=== PATIENT | male | born 1955 | race Caucasian/White ===

== ENCOUNTER 2023-08-19 10:27 | Emergency (ER) | payer MEDICARE, OTHER, SELFPAY ==
[2023-08-19 10:29] VITALS: BP 140/99
--- NOTE | 2023-08-19 11:44 | ED.GENMED ---
History of Present Illness
General
Chief Complaint: Fall
Time Seen by Provider: 08/19/23 11:15
Travel History
Have you had any contact with someone who has COVID-19?: No
Do you have any symptoms of coronavirus? Fever > 100 degrees, chills, cough, shortness of breath, sore throat, loss of taste or smell, muscle aches, or headache?: No
History of Present Illness
History of Present Illness:
68-year-old male presents emergency department for evaluation of left knee pain. He states his leg becomes stuck between 2 logs when he twisted and fell to the ground. Unable to bear weight on the leg. Pain and swelling to the superior L knee
Review of Systems
Review of Systems
Allergies reviewed?: Yes
All Other Systems: ROS reviewed and negative except as documented in HPI and ROS
Phy Exam
Physical Exam
Physical Exam:
GEN: Well appearing, NAD, WDWN
HEENT: Oral mucosa moist, no scleral icterus
Cardiac: Regular rate
Lung: No respiratory distress, no tachypnea
MSK: Marked swelling of the L anterior knee, low lying patella. Focal tenderness to the superior patella. Unable to perform SLR on the L
Skin: Good color, no pallor or jaundice, no rashes
Neuro: AO x3, moves all extremities freely
Psych: Calm, cooperative
Course
Orders/Labs/Results
Orders:
Orders
08/19/23 10:31
Knee, Left 4 or More Views [CR Knee - Left 4 Or More View*] Urgent
Comment:
Reason For Exam: pain
08/19/23 11:44
Crutches-Treatment ONCE
Knee Immobilizer Left-Treatmen ONCE
Vital Signs
Initial and Last Documented VS:
Initial Vital Signs
Temp Pulse Resp BP Pulse Ox
97.8 F 82 18 140/99 97
08/19/23 10:29 08/19/23 10:29 08/19/23 10:29 08/19/23 10:29 08/19/23 10:29
Last Documented Vital Signs
Temp Pulse Resp BP Pulse Ox
97.8 F 82 18 140/99 97
08/19/23 10:29 08/19/23 10:29 08/19/23 10:29 08/19/23 10:29 08/19/23 10:29
MDM/Problems Addressed
MDM/Problems Addressed:
High concern for quad tendon rupture given lack of ability to perform SLR. Knee immobilizer placed, advised PWB and ortho f/u
*Critical Care Note
Total Time (30-74mins, 75-104mins- exclusive of procedures): Not Applicable
ED Attending Note
-
Portions of this chart may have been created with voice recognition software.� Occasional wrong word or��sound alike� substitutions may have occurred due to the inherent limitations of voice recognition software.
Discharge Plan
Departure
Patient Disposition: Home (Routine Discharge)
Date of Disposition: 08/19/23
Time of Disposition: 11:44
Patient with high blood pressure during this ER visit?: No
Discharge Problem:
Rupture of left quadriceps tendon
Instructions: Quadriceps and Patellar Tendon Injuries
Referrals:
Tramaine Marrero MD [Active] -
Andrea Sumner MD [Family Provider] -
Activity Restrictions/Additional Instructions:
You may take off the knee immobilizer when lying flat in order to ice the knee
DO NOT REMOVE TO BATHE YOUR LEG IS VERY UNSTABLE
Ice 3-5 times daily to reduce swelling
Contact orthopedics KIP
Interventions
Interventions:
*Risk Screen - Suicide Last Done: 08/19/23 10:29
*General Assessment Last Done: 08/19/23 10:29
*Neglect/Abuse Screening Last Done: 08/19/23 10:29
ED- Fall Risk Assessment Last Done: 08/19/23 12:44
*ED COVID-19 Vaccine History Last Done: 08/19/23 10:29
*Nursing Disposition Last Done: 08/19/23 12:44
ED-Musculoskeletal Assessment Last Done: 08/19/23 11:37
ED- Neurological Assessment Last Done: 08/19/23 11:37
ED-Skin Assessment Last Done: 08/19/23 11:37
Discharge Date and Time
Discharge Date/Time: 08/19/23 12:44
== END 2023-08-19 12:44 | disposition home or self-care (01) ==
LOC: EMR 10:27
PROVIDERS: EMERGENCY PHYSICIAN Emergency Medicine; FAMILY PHYSICIAN Family Medicine
DX: S76.112A Strain of left quadriceps muscle, fascia and tendon, initial encounter (principal); X50.1XXA Overexertion from prolonged static or awkward postures, initial encounter
CPT/HCPCS: 99283; 29505; 73564

== ENCOUNTER 2023-08-24 06:16 | Day surgery (SDC) | payer MEDICARE, OTHER, SELFPAY ==
[2023-08-24] VITALS (14 sets, daily range): BP systolic 118–142; BP diastolic 75–92; BMI 28.5; BMI 29.6
[2023-08-24] MEDS: CELEBREX 200 MG PO (10:48)
[2023-08-24] MEDS: TYLENOL 1000 MG PO (10:48)
[2023-08-24] MEDS: NORMOSOL-R 1000 IV ×2 (11:01→22:29)
[2023-08-24 11:13] LABS: Hematocrit 38.1 % (39.0-52.0); Hemoglobin 13.3 g/dL (13.0-18.0); Mean Corp Hgb Conc. 34.9 g/dL (33.0-37.0); Mean Corpuscular Hgb 30.7 pg (27.0-31.0); Mean Platelet Volume 9.2 fL (7.4-10.4); Platelet Count 290 10^3/uL (130-400); Red Blood Cell Count 4.33 10^6/uL (4.70-6.10); Red Cell Dist. Width 12.9 % (11.5-14.5)
[2023-08-24 12:05] LABS: Blood Urea Nitrogen 16 mg/dl (9-20); Calcium 9.1 mg/dl (8.4-10.2); Carbon Dioxide 25 mmol/L (22-30); Chloride 105 mmol/L (98-107); Estimated Creatinine Clearance 105 ml/min; Glucose 96 mg/dl (70-99); Sodium 135 mmol/L (135-145); eGFR > 60.00
--- NOTE | 2023-08-24 12:56 | PTCARENOTE ---
Informed by OR desk that Dr. Paredes is still in his first case and will be delayed. Went in to patients room to talk to him and his . Patient was sound asleep, but informed of the delay and that it will be approximately 2-3 hours before he
will go back for surgery. Gave her the option to cancel surgery and reschedule. She said that when her wakes up they will discuss and let us know. Will continue to monitor.
[2023-08-24] MEDS: TORADOL 15 MG IV (21:20)
[2023-08-24] MEDS: ZOFRAN 4 MG IV (22:16)
--- NOTE | 2023-08-24 22:25 | HPS.HSE ---
Family Physician
-
Family Physician: NO INTERVIEW UNKNOWN
Chief Complaint
-
surgery
History of Present Illness
68-year-old male without past medical history presenting for elective left quadriceps tendon repair today. After surgery he was noted to be somnolent and lethargic and unable to go home. Patient complaining of throbbing in his left lower extremity
and some nausea but denies any chest pain or shortness of breath. Hospitalist comnsulted for monitoring overnight.
Patient does not smoke or drink alcohol or use any drugs.
Medical History
Past Medical History
Past Medical History: Reports None
Past Surgical History: Reports None
Social History
Tobacco: Non-smoker
Alcohol: None
Drug: None
Family History
Family History: Not pertinent
Allergies / Home Medications
Allergies reflects when Allergies were last updated in [facility].
Home Medications with original date entered in [facility]
Allergy/Medication List:
Allergies
Allergy/AdvReac Type Severity Reaction Status Date / Time
No Known Allergies Allergy Unverified 08/24/23 10:33
Home Medications
ibuprofen 200 mg tablet (Advil) 400 mg PO Q6H PRN pain 08/24/23
Review of Systems
-
History Source: Patient
A 12 point ROS was completed and negative except as noted: Yes
Constitutional: Reports No Symptoms
EENT: Reports No Symptoms
Respiratory: Reports No Symptoms
Cardiac: Reports No Symptoms
Abdomen/GI: Reports No Symptoms
: Reports No Symptoms
Musculoskeletal: Reports No Symptoms
Skin: Reports No Symptoms
Neurological: Reports No Symptoms
Endocrine: Reports No Symptoms
Hematologic/Lymphatic: Reports No Symptoms
Psych: Reports No Symptoms
Physical Exam
Vital Signs
Vital Signs
Temp Pulse Resp BP Pulse Ox
98.9 F 124 24 131/92 97
08/24/23 21:15 08/24/23 22:15 08/24/23 22:15 08/24/23 22:15 08/24/23 22:15
Physical Exam
General: Well Developed, Well Nourished and No Apparent Distress
HEENT: NormoCephalic, Moist mucous membranes and Atraumatic
Respiratory: Clear
Cardiac: S1/S2 and Regular Rhythm; No Murmur or Rub
GI: Soft, Non Tender, Non Distended and Normal Bowel Sounds; No Organomegaly
Rectal: Deferred by Provider
Musculoskeletal: No Clubbing, No Cyanosis and No Edema
Skin: No Rash
Neuro: Nonfocal/grossly intact
Laboratory Results
-
08/24/23 10:58
08/24/23 10:58
Data Reviewed
-
Lab Data: Labs Reviewed by me
Old Records: Reviewed
Impression/Plan
-
IMPRESSION:
PLAN:
# Somnolence after elective left quadriceps tendon repair secondary to anesthesia
-monitor overnight
#Rupture of left quadriceps tendon status post repair today
-Patient received nerve block of left lower extremity
-PRN tylenol, oxycodone
-Keep left knee knee immobilizer
-Nonweightbearing left lower extremity due to nerve block
Full code
DVT prophylaxis-none
Regular diet
--- NOTE | 2023-08-24 23:29 | PTCARENOTE ---
2250pt rec'vd from PACU, LLE immobilizer in place over abd pads and abd Aquacel drsging. Denies pain at this time,Pt is lethargic but easily arousable to verbal commands, pt attempted to void without success, denies lower abd pain. IVF via RAC, VS
WNL, oriented to unit.
[2023-08-25] VITALS (8 sets, daily range): BP systolic 109–119; BP diastolic 64–79
--- NOTE | 2023-08-25 05:33 | PTCARENOTE ---
pt able to void 900cc for shift, immobilizer in place + CMS to LLE.
[2023-08-25 06:26] LABS: % Basophils 0.1 % (0-2); % Immature Granulocytes 0.4 % (0-0.5); % Monocytes 4.4 % (1.7-9.3); % Neutrophils 89.1 % (42.2-75.2); Absolute Lymphocytes 0.6 10^3/uL (1.2-3.4); Absolute Monocytes 0.4 10^3/uL (0.1-0.6); Absolute Neutrophils 8.2 10^3/uL (1.4-6.5); Hematocrit 36.4 % (39.0-52.0); Hemoglobin 12.4 g/dL (13.0-18.0); Mean Corp Hgb Conc. 34.1 g/dL (33.0-37.0); Mean Corpuscular Hgb 30.2 pg (27.0-31.0); Mean Corpuscular Volume 88.6 fL (80.0-94.0); Mean Platelet Volume 9.7 fL (7.4-10.4); Nucleated Red Blood Cells % 0 % (-); Platelet Count 259 10^3/uL (130-400); Red Blood Cell Count 4.11 10^6/uL (4.70-6.10); White Blood Cell Count 9.2 10^3/uL (4.8-10.8)
[2023-08-25 06:47] LABS: ALT (SGPT) 129 U/L (0-50); AST (SGOT) 96 U/L (17-59); Albumin 3.4 g/dl (3.5-5.0); Alkaline Phosphatase 76 U/L (38-126); Blood Urea Nitrogen 17 mg/dl (9-20); Calcium 8.5 mg/dl (8.4-10.2); Carbon Dioxide 24 mmol/L (22-30); Chloride 105 mmol/L (98-107); Estimated Creatinine Clearance 103 ml/min; Glucose 144 mg/dl (70-99); Potassium 4.2 mmol/L (3.5-5.1); Sodium 135 mmol/L (135-145); Total Bilirubin 1.7 mg/dl (0.2-1.3); Total Protein 5.5 g/dl (6.3-8.2); eGFR > 60.00
--- NOTE | 2023-08-25 08:16 | W.PN.HOSP.TC ---
Today's Communication/Plan
-
observe follow up repeat LFT in AM
GI eval
post-surgical care as per orthopedic
Assessment / Plan
Assessment / Plan
Physical Exam
General: Well Developed, Well Nourished and No Apparent Distress
HEENT: NormoCephalic, Moist mucous membranes and Atraumatic
Respiratory: Clear
Cardiac: S1/S2 and Regular Rhythm; No Murmur or Rub
GI: Soft, Non Tender, Non Distended and Normal Bowel Sounds; No Organomegaly
Musculoskeletal: No Clubbing, No Cyanosis and No Edema, Left lower ext immobilizer in placed
Skin: No Rash
Neuro: Nonfocal/grossly intact
# Somnolence after elective left quadriceps tendon repair secondary to anesthesia
-since resolved
#Transaminitis Mild Liver dysfunction unclear etiology
Follow up repeat LFTs in AM
GI eval
#Rupture of left quadriceps tendon status post repair today
-Patient received nerve block of left lower extremity
-PRN tylenol, oxycodone
-Keep left knee knee immobilizer
-Nonweightbearing left lower extremity due to nerve block
Full code
DVT prophylaxis-none
Regular diet
I spent a total of 50 minutes with the patient or on the floor. More than 50% of this time involved counseling and coordination of care.
Anticipated Discharge: Within 24 hours
Subjective/Interval History
-
Date of Service: August 25, 2023
No acute distress sitting up comfortably in bed. Denies any new acute issues at this time reports overall feeling well. Pain controlled with current regimen
Objective Data
-
Labs:
Laboratory Results
08/25/23
05:00
WBC 9.2
Hgb 12.4 L
Hct 36.4 L
Plt Count 259
Sodium 135
Potassium 4.2
Chloride 105
Carbon Dioxide 24
BUN 17
Creatinine 0.8
Glucose 144 H
Calcium 8.5
Total Bilirubin 1.7 H
AST 96 H
ALT 129 H
Alkaline Phosphatase 76
Vital Signs:
Vital Signs
Temp Pulse Resp BP Pulse Ox
98.7 F 83 19 119/79 95
08/25/23 07:48 08/25/23 07:48 08/25/23 07:48 08/25/23 07:48 08/25/23 07:48
I&O
08/24/23 08/25/23 08/26/23
06:59 06:59 06:59
Intake Total 450 / 450
Output Total 1400 / 1400
Balance -950 / -950
--- NOTE | 2023-08-25 12:11 | CON.GI ---
Addendum entered and electronically signed by Yazan Marte MD 08/25/23 18:40:
I saw and examined the patient.
The PA's note was reviewed and I agree with the note.
Comment:
Pt is a 68 year old male with h/o colon polyps, BPH, melanoma with resection with admission 08/23 with left quadriceps tendon repair. Pt was noted to have elevated LFT post-op.
Impression / Rec:
1. Elevated LFT - follow up labs this am was elevated with bili 1.7, AST 96, ALT 129 alk phos 129. No known liver disease. Normal LFT in 2022. No ETOH use. No supplement use. The etiology is unclear. US showed hepatomegaly with steatosis.
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 AST/ALT may be from MAFLD. Agree with trending LFT, if improves, can continue OP evaluation. F/u with us vs his GI at [facility]. Will s/o,
pls call with questions.
Original Note:
Consultation
-
Date/Time Consultation Requested: 08/25/23 1145
Date/Time Consultation Performed: 08/25/23 1210
Requesting Provider: Sofi Rush MD
Performing Provider: YAMILA Thorne, Yazan Marte MD
Reason for Consultation: elevated LFT's
Medical History
Chief Complaint / HPI
Chief Complaint: elevated LFT's
History of Present Illness:
Pt is a 68yo presents with hx renetta, colon polyps, enlarged prostate, melanoma with resection with admission 08/23 with left quadriceps tendon repair. He was noted with somnolence post-op with admission. He had follow up labs this am with noted
bili 1.7, AST 96, ALT 129 alk phos 129. Pt denies hx prior liver issues or hepatitis and actually had hepatitis panel in 2022. He admits to Advil use for knee issues but no other medication other than steroids course several months ago. No ETOH
use. No supplement use. Prior labs with normal LFt's in 2021 and 08/2022.
From GI standpoint patient admits to occasional loose stools but then no stools for several days. He will get belching with eating pretzels but otherwise denies dysphagia, GERD, nausea, vomiting, abdominal pain, blood or black in stools. Last
colonoscopy about 6 years ago at [facility] with polyps. No prior EGD.
Past Medical History
Past Medical History: Other (umbilical melanoma with resection, enlarged prostate, colon polyps)
Past Surgical History: Cholecystectomy
Social History
Tobacco: Non-Smoker
Alcohol: None
Drug: None
Living: With Family
Employment: Employed
Family History
Family History: Other (no family hx liver issues or colon CA)
Allergies / Home Medications
Allergy/AdvReac Type Severity Reaction Status Date / Time
No Known Allergies Allergy Unverified 08/24/23 10:33
�Medication �Instructions �Recorded
ibuprofen 200 mg tablet (Advil) 400 mg PO Q6H PRN pain 08/24/23
Review of Systems
-
History Source: Patient and Family
Constitutional: Reports No Symptoms
EENT: Reports No Symptoms
Respiratory: Reports No Symptoms
Abdomen/GI: Reports Diarrhea (occasional ) and Constipated (occasional )
: Reports No Symptoms
Musculoskeletal: Reports Other (knee discomfort post-op)
Skin: Reports No Symptoms
Neurological: Reports No Symptoms
Endocrine: Reports No Symptoms
Hematologic/Lymphatic: Reports No Symptoms
Vital Signs
Temp Pulse Resp BP Pulse Ox
99.2 F 96 19 109/64 97
08/25/23 11:16 08/25/23 11:16 08/25/23 11:16 08/25/23 11:16 08/25/23 11:16
Physical Exam
Exam
General: Well Developed, Well Nourished and No Apparent Distress
HEENT: Normocephalic and Anicteric
Respiratory: Clear
Cardiac: Regular Rhythm
GI: Soft, Non Distended and Other (no HSM)
Musculoskeletal: No Clubbing and No Cyanosis
Skin: Warm and Dry
Neuro: Awake, Alert and AO x 3
Psych: Calm
Results
WBC 9.2 10^3/uL (4.8-10.8) 08/25/23 05:00
Hgb 12.4 g/dL (13.0-18.0) L 08/25/23 05:00
Hct 36.4 % (39.0-52.0) L 08/25/23 05:00
MCV 88.6 fL (80.0-94.0) 08/25/23 05:00
Plt Count 259 10^3/uL (130-400) 08/25/23 05:00
Absolute Neuts (auto) 8.2 10^3/uL (1.4-6.5) H 08/25/23 05:00
Sodium 135 mmol/L (135-145) 08/25/23 05:00
Potassium 4.2 mmol/L (3.5-5.1) 08/25/23 05:00
Chloride 105 mmol/L (98-107) 08/25/23 05:00
Carbon Dioxide 24 mmol/L (22-30) 08/25/23 05:00
BUN 17 mg/dl (9-20) 08/25/23 05:00
Creatinine 0.8 mg/dL (0.7-1.3) 08/25/23 05:00
Calcium 8.5 mg/dl (8.4-10.2) 08/25/23 05:00
Total Bilirubin 1.7 mg/dl (0.2-1.3) H 08/25/23 05:00
AST 96 U/L (17-59) H 08/25/23 05:00
ALT 129 U/L (0-50) H 08/25/23 05:00
Alkaline Phosphatase 76 U/L (38-126) 08/25/23 05:00
Diagnostic Image Results:
no imaging reviewed
Prior GI Procedures:
EGD: none
Colonoscopy: 6 years ago at [facility] due for follow up
Assessment / Plan
-
Pt is a 68yo presents with hx renetta, colon polyps, enlarged prostate, melanoma with resection with admission 08/23 with left quadriceps tendon repair. He was noted with somnolence post-op with admission. He had follow up labs this am with noted
bili 1.7, AST 96, ALT 129 alk phos 129. Pt denies hx prior liver issues or hepatitis and actually had hepatitis panel in 2022. He admits to Advil use for knee issues but no other medication other than steroids course several months ago. No ETOH
use. No supplement use. Prior labs with normal LFt's in 2021 and 08/2022.
-elevated liver functions
-s/p left quadriceps repair 08/23
-hx renetta
-variable stool pattern
other medical problems:
-hx colon polyps
-hx melanoma with resection
-enlarged prostate
PLAN:
etiology of elevated LFT's unclear-- transient hypotension in OR, underlying fatty liver, vs other
pt denies ETOH and only medication with Advil prior to admission
lowest BP in OR was to 80/50
normal LFT's in 2021 and 2022
currently no abdominal pain or fever
add D bili
obtain US abdomen if stable consider repeat in LFt's 1-2 week to see if normalized
if not normal consider OP serology work up with iron studies, autoimmune testing, ceruloplasmin etc
hepatitis panel 2022 reviewed and noted negative
Pt also due for OP colonoscopy t/c follow up after discharge and recovered from current knee issues
discussed with variable stool pattern adding fiber supplement daily
reviewed OP follow up in our office vs known GI in [facility]
-
-
Thank you for consultation and allowing me to participate in the patient's care. Please call the continuity manager GI physician during the after hours with any questions or concerns.
--- NOTE | 2023-08-25 12:35 | W.PN.ORTHO ---
Today's Communication / Plan
-
68-year-old male postop day 1 left quadricep tendon repair with Dr. Paredes
-Nonweightbearing to left lower extremity for 24 hours secondary to nerve block.
-Knee immobilizer when ambulatory otherwise. May take breaks when at rest from knee immobilizer but no active range of motion at this time.
-Recommend DVT prophylaxis of aspirin 81 mg twice a day until ambulatory status advanced, approximately 30 days
-Pain is well-controlled at this time; medications were previously ordered for pain to outpatient pharmacy and would not require further pain medication upon discharge.
-Pending duration of admission can consider PT consult when able to be weightbearing as tolerated in knee immobilizer with assist devices after 24-hour wait secondary to nerve block
-Orthopedic surgery will continue to follow at this time while patient is admitted.
Assessment
.
Distal Motor Intact: Yes
Dressing:
Clean, dry and intact.
Plan
.
Surgery / Date: Left quad tendon repair 24 August 2023
Activity:
Out of bed.
PT/OT
Subjective
.
.:
Patient resting comfortably.
Vital Signs and Labs
.
Vital Signs and Labs:
Lab Results
08/25/23 05:00
08/25/23 05:00
Temp Pulse Resp BP Pulse Ox
99.2 F 96 19 109/64 97
08/25/23 11:16 08/25/23 11:16 08/25/23 11:16 08/25/23 11:16 08/25/23 11:16
[2023-08-25 13:56] LABS: Direct Bilirubin 0.2 mg/dl (0.0-0.4)
--- NOTE | 2023-08-25 14:14 | CM ---
Addendum entered by Dariela Le 08/25/23 14:29:
Family Andrea Rios
Address: [address], [address], [place] [address]

Addendum entered by Dariela Le 08/25/23 14:28:
ROJAS form explained and signed
Original Note:
Met with patient and his at bedside; initial assessment completed
Pharmacy verified: [facility], [address], [place]
Family Physician verified: Dr. Sumner, [place], [place]
Patient reported that he lives with his in a multi-level home; 3 steps to enter; 13 steps between floors; powder room on the 1st floor; 2nd floor bathroom has walk-in shower. Powder room has a raised toilet with surround grab bar
PLOF: patient reported that prior to injury, he was independent with ambulation, stairs, and ADLs; drives
DME: None
SNF/Rehab/Home Care utilization history: none
Transporation: will provide ride home
Plan: Discharge to home; if recommended, patient is agreeable to home care
[2023-08-25] MEDS: TYLENOL 650 MG PO (16:09)
[2023-08-25] MEDS: LOW STRENGTH ASPIRIN 81 MG PO (20:52)
--- NOTE | 2023-08-25 21:08 | OR.RPT ---
Operative Report
Operative Report
Orthopedic Surgery Operative Report
Date of Surgery: 08/24/23
PREOPERATIVE DIAGNOSES:
1. Left quadriceps tendon rupture
POSTOPERATIVE DIAGNOSES:
1. Left quadriceps tendon rupture
PROCEDURE PERFORMED:
1. Left quadriceps tendon repair
SURGEON: Santiago Paredes D.O.
CRITICAL CARE RN: None
ANESTHESIA: General
COMPLICATIONS: None
ESTIMATED BLOOD LOSS: 50 cc
DRAINS: None
SPECIMEN: None
IMPLANTS:
Arthrex suture anchor
INDICATION FOR SURGERY: The patient is a 68-year-old male who sustained a left quadriceps tendon rupture when his foot got stuck between pieces of wood as he was chopping firewood. Due to the nature of his injury, a decision was made to proceed
with quadriceps tendon repair. The risks, benefits, alternatives, and indications were discussed in detail. The risks include, but are not limited to bleeding requiring transfusion, infection, need for reoperation, nerve or blood vessel damage,
anesthetic risks, need for further surgery, tendon re-rupture, blood clots in the legs, heart attack, stroke, , and continued pain. They understood the risks and elected to proceed.
PROCEDURE IN DETAIL: The patient was identified in the preoperative holding area. The surgical site was appropriately marked. The patient was then brought to the operating room. General anesthesia was achieved. The patient was given routine
preoperative intravenous antibiotics. The patient was then appropriately positioned on the operative table. A tourniquet was applied. The patient was prepped and draped in the usual sterile manner. A preoperative surgical time-out was taken, the
limb was exsanguinated, the tourniquet was inflated and the procedure was initiated.
A midline incision was made over the left knee. Soft tissues were dissected to expose the anterior knee. A large amount of hematoma was present which was evacuated. The distal quadriceps tendon was then explored. A complete rupture of the distal
quadriceps tendon was present with no residual attachment to the patella. The distal quadriceps tendon as well as the superior pole of the patella were debrided. #5 Ethibond suture was then weaved proximally and then distally bilaterally in Krak�w
fashion through the quadriceps tendon. Next, a drill was utilized to create 3 tunnels through the patella. The suture limbs were passed through the patellar tunnels using a suture passer. The knee was held in full extension. The tourniquet was
deflated. The sutures were tensioned to reduce the quadriceps tendon to the patella. The sutures were then tied at the distal pole of the patella to secure the quadriceps tendon in place. Once the sutures were tied, the knee was taken through a
range of motion. The quadriceps tendon was found to gap slightly at the lateral border of the patella. Fixation was then augmented at the lateral border using suture tape and an Arthrex suture anchor (the sutures were weaved through the quadriceps
tendon in Krak�w fashion and then secured to the suture anchor). The knee was once again taken through a range of motion�no gapping with found to be present at the quadriceps tendon�patellar interface. Hemostasis was achieved. The medial and
lateral patellar retinacula were repaired. The wound was copiously irrigated. The wound was then closed in layered fashion using Vicryl suture. Viola were applied at the skin. A sterile dressing was applied followed by application of a knee
immobilizer. Patient tolerated the procedure well with no immediate complications.
Santiago Paredes D.O.
Orthopedic Surgery
[2023-08-26 04:53] LABS: Hemoglobin 11.4 g/dL (13.0-18.0); Mean Corp Hgb Conc. 33.5 g/dL (33.0-37.0); Mean Corpuscular Hgb 29.9 pg (27.0-31.0); Mean Corpuscular Volume 89.2 fL (80.0-94.0); Mean Platelet Volume 9.5 fL (7.4-10.4); Platelet Count 269 10^3/uL (130-400); Red Blood Cell Count 3.81 10^6/uL (4.70-6.10); Red Cell Dist. Width 13.2 % (11.5-14.5); White Blood Cell Count 10.9 10^3/uL (4.8-10.8)
[2023-08-26 05:07] LABS: PT 14.2 Sec (11.4-14.6)
[2023-08-26 05:32] LABS: ALT (SGPT) 68 U/L (0-50); AST (SGOT) 31 U/L (17-59); Alkaline Phosphatase 67 U/L (38-126); Blood Urea Nitrogen 18 mg/dl (9-20); Calcium 8.6 mg/dl (8.4-10.2); Carbon Dioxide 28 mmol/L (22-30); Chloride 103 mmol/L (98-107); Estimated Creatinine Clearance 91 ml/min; Glucose 105 mg/dl (70-99); Magnesium 2.2 mg/dl (1.6-2.3); Potassium 3.9 mmol/L (3.5-5.1); Sodium 136 mmol/L (135-145); Total Protein 5.1 g/dl (6.3-8.2); eGFR > 60.00
[2023-08-26] MEDS: ROXICODONE 10 MG PO ×3 (06:07→16:53)
[2023-08-26 08:00] VITALS: BP 124/71
[2023-08-26] MEDS: LOW STRENGTH ASPIRIN 81 MG PO (08:24)
--- NOTE | 2023-08-26 09:00 | W.PN.GI.CBS2 ---
Today's Communication / Plan
-
etiology of elevated LFT's unclear-- transient hypotension in OR, underlying fatty liver, vs other
pt denies ETOH and only medication with Advil prior to admission
lowest BP in OR was to 80/50
normal LFT's in 2021 and 2022
d bili normal
LFT trend today improved
US with fatty liver discussed wt loss, healthy diet, ETOH avoidance/ toxic med
Fib 4 0.92 low risk
add D bili
repeat labs 1-2 weeks slip given to patient
if not normal consider OP serology work up with iron studies, autoimmune testing, ceruloplasmin etc
hepatitis panel 2022 reviewed and noted negative
Pt also due for OP colonoscopy t/c follow up after discharge and recovered from current knee issues
discussed with variable stool pattern adding fiber supplement daily
stable from GI for discharge
updated family
reviewed OP follow up in our office vs known GI in [place]-- message sent to office to offer appt
will sign off
Assessment / Plan
-
Pt is a 68yo presents with hx renetta, colon polyps, enlarged prostate, melanoma with resection with admission 08/23 with left quadriceps tendon repair. He was noted with somnolence post-op with admission. He had follow up labs this am with noted
bili 1.7, AST 96, ALT 129 alk phos 129. Pt denies hx prior liver issues or hepatitis and actually had hepatitis panel in 2022. He admits to Advil use for knee issues but no other medication other than steroids course several months ago. No ETOH
use. No supplement use. Prior labs with normal LFt's in 2021 and 08/2022.
08/24 US abd
Status post cholecystectomy with no evidence for biliary ductal dilation.
Hepatomegaly with diffuse fatty infiltration of the liver.
The pancreas is not optimally visualized.
-elevated liver functions
-s/p left quadriceps repair 08/23
-hx renetta
-variable stool pattern
-fatty liver per US
other medical problems:
-hx colon polyps
-hx melanoma with resection
-enlarged prostate
PLAN:
etiology of elevated LFT's unclear-- transient hypotension in OR, underlying fatty liver, vs other
pt denies ETOH and only medication with Advil prior to admission
lowest BP in OR was to 80/50
normal LFT's in 2021 and 2022
d bili normal
LFT trend today improved
US with fatty liver discussed wt loss, healthy diet, ETOH avoidance/ toxic med
Fib 4 0.92 low risk
add D bili
repeat labs 1-2 weeks slip given to patient
if not normal consider OP serology work up with iron studies, autoimmune testing, ceruloplasmin etc
hepatitis panel 2022 reviewed and noted negative
Pt also due for OP colonoscopy t/c follow up after discharge and recovered from current knee issues
discussed with variable stool pattern adding fiber supplement daily
stable from GI for discharge
updated family
reviewed OP follow up in our office vs known GI in [place]-- message sent to office to offer appt
Subjective
Subjective
Date of Service: August 26, 2023
feeling well tolerating diet
Objective
Data Reviewed
Laboratory Data:
Laboratory Results
08/26/23 04:23
08/26/23 04:23
Laboratory Results
PT 14.2 Sec (11.4-14.6) 08/26/23 04:23
INR 1.10 08/26/23 04:23
Phosphorus 3.0 mg/dl (2.5-4.5) 08/26/23 04:23
Magnesium 2.2 mg/dl (1.6-2.3) 08/26/23 04:23
Total Bilirubin 1.0 mg/dl (0.2-1.3) 08/26/23 04:23
AST 31 U/L (17-59) 08/26/23 04:23
ALT 68 U/L (0-50) H 08/26/23 04:23
Alkaline Phosphatase 67 U/L (38-126) 08/26/23 04:23
Vital Signs and I&O:
Vital Signs
Temp Pulse Resp BP Pulse Ox
99 F 88 16 124/71 93
08/26/23 08:00 08/26/23 08:00 08/26/23 08:00 08/26/23 08:00 08/26/23 08:00
I&O
08/25/23 08/26/23 08/27/23
06:59 06:59 06:59
Intake Total 450 / 450 1560 / 1560
Output Total 1400 / 1400 2130 / 2130
Balance -950 / -950 -570 / -570
Physical Exam
Physical Exam
HEENT: Anicteric and Moist mucous membranes
Cardiology: Normal Sinus Rhythm
Pulmonary: Clear
GI: Soft, Non Distended and Non Tender
Extremities: Other (s/p knee surgery )
Neuro: Non Focal
--- NOTE | 2023-08-26 10:07 | W.PN.GI.CBS2 ---
Today's Communication / Plan
-
etiology of elevated LFT's unclear-- transient hypotension in OR, underlying fatty liver, vs other
pt denies ETOH and only medication with Advil prior to admission
lowest BP in OR was to 80/50
normal LFT's in 2021 and 2022
d bili normal
LFT trend today improved
US with fatty liver discussed wt loss, healthy diet, ETOH avoidance/ toxic med
Fib 4 0.92 low risk
add D bili
repeat labs 1-2 weeks slip given to patient
if not normal consider OP serology work up with iron studies, autoimmune testing, ceruloplasmin etc
hepatitis panel 2022 reviewed and noted negative
Pt also due for OP colonoscopy t/c follow up after discharge and recovered from current knee issues
discussed with variable stool pattern adding fiber supplement daily
stable from GI for discharge
updated family
reviewed OP follow up in our office vs known GI in [place]-- message sent to office to offer appt
Assessment / Plan
-
Pt is a 68yo presents with hx renetta, colon polyps, enlarged prostate, melanoma with resection with admission 08/23 with left quadriceps tendon repair. He was noted with somnolence post-op with admission. He had follow up labs this am with noted
bili 1.7, AST 96, ALT 129 alk phos 129. Pt denies hx prior liver issues or hepatitis and actually had hepatitis panel in 2022. He admits to Advil use for knee issues but no other medication other than steroids course several months ago. No ETOH
use. No supplement use. Prior labs with normal LFt's in 2021 and 08/2022.
08/24 US abd
Status post cholecystectomy with no evidence for biliary ductal dilation.
Hepatomegaly with diffuse fatty infiltration of the liver.
The pancreas is not optimally visualized.
-elevated liver functions
-s/p left quadriceps repair 08/23
-hx renetta
-variable stool pattern
-fatty liver per US
other medical problems:
-hx colon polyps
-hx melanoma with resection
-enlarged prostate
PLAN:
etiology of elevated LFT's unclear-- transient hypotension in OR, underlying fatty liver, vs other
pt denies ETOH and only medication with Advil prior to admission
lowest BP in OR was to 80/50
normal LFT's in 2021 and 2022
d bili normal
LFT trend today improved
US with fatty liver discussed wt loss, healthy diet, ETOH avoidance/ toxic med
Fib 4 0.92 low risk
add D bili
repeat labs 1-2 weeks slip given to patient
if not normal consider OP serology work up with iron studies, autoimmune testing, ceruloplasmin etc
hepatitis panel 2022 reviewed and noted negative
Pt also due for OP colonoscopy t/c follow up after discharge and recovered from current knee issues
discussed with variable stool pattern adding fiber supplement daily
stable from GI for discharge
updated family
reviewed OP follow up in our office vs known GI in [place]-- message sent to office to offer appt
Subjective
Subjective
Date of Service: August 26, 2023
pt feeling well
Objective
Data Reviewed
Laboratory Data:
Laboratory Results
08/26/23 04:23
08/26/23 04:23
Laboratory Results
PT 14.2 Sec (11.4-14.6) 08/26/23 04:23
INR 1.10 08/26/23 04:23
Phosphorus 3.0 mg/dl (2.5-4.5) 08/26/23 04:23
Magnesium 2.2 mg/dl (1.6-2.3) 08/26/23 04:23
Total Bilirubin 1.0 mg/dl (0.2-1.3) 08/26/23 04:23
AST 31 U/L (17-59) 08/26/23 04:23
ALT 68 U/L (0-50) H 08/26/23 04:23
Alkaline Phosphatase 67 U/L (38-126) 08/26/23 04:23
Vital Signs and I&O:
Vital Signs
Temp Pulse Resp BP Pulse Ox
99 F 88 16 124/71 93
08/26/23 08:00 08/26/23 08:00 08/26/23 08:00 08/26/23 08:00 08/26/23 08:00
I&O
08/25/23 08/26/23 08/27/23
06:59 06:59 06:59
Intake Total 450 / 450 1560 / 1560
Output Total 1400 / 1400 2130 / 2130
Balance -950 / -950 -570 / -570
Physical Exam
Physical Exam
HEENT: Anicteric and Moist mucous membranes
Cardiology: Normal Sinus Rhythm
Pulmonary: Clear
GI: Soft, Non Distended and Non Tender
Extremities: Other (s/p knee surgery )
Neuro: Non Focal
--- NOTE | 2023-08-26 10:34 | W.PN.ORTHO ---
Today's Communication / Plan
-
68-year-old male postop day #2 left quadriceps tendon repair with Dr. Paredes
-weightbearing as tolerated to left lower extremity in knee immobilizer.
-Knee immobilizer time analysis clerk. May take breaks when at rest from knee immobilizer but no active range of motion at this time.
-Recommend DVT prophylaxis of aspirin 81 mg twice a day until ambulatory status advanced, approximately 30 days
-Pain is well-controlled at this time with pain medication; medications were previously ordered for pain to outpatient pharmacy and would not require further pain medication upon discharge.
-Pending duration of admission can consider PT consult when able to be weightbearing as tolerated in knee immobilizer with assist devices after 24-hour wait secondary to nerve block
-Orthopedic surgery will sign off for now and he harley lf/u for outpatient post op visit.
Assessment
.
Distal Motor Intact: Yes
Dressing:
Clean, dry and intact.
Assessment:
68-year-old male postop day #2 left quadriceps tendon repair with Dr. Paredes
-weightbearing as tolerated to left lower extremity in knee immobilizer.
-Knee immobilizer time analysis clerk. May take breaks when at rest from knee immobilizer but no active range of motion at this time.
-Recommend DVT prophylaxis of aspirin 81 mg twice a day until ambulatory status advanced, approximately 30 days
-Pain is well-controlled at this time with pain medication; medications were previously ordered for pain to outpatient pharmacy and would not require further pain medication upon discharge.
-Pending duration of admission can consider PT consult when able to be weightbearing as tolerated in knee immobilizer with assist devices after 24-hour wait secondary to nerve block
-Orthopedic surgery will sign off for now and he harley lf/u for outpatient post op visit.
Plan
.
Surgery / Date: Left quad tendon repair 24 August 2023
DVT Prophylaxis: Aspirin
Activity:
Out of bed.
PT/OT
Discharge Plan: Home
Subjective
.
.:
Patient resting comfortably in bed. Reports increased left knee pain overnight. Maintaining knee immobilizer.
Vital Signs and Labs
.
Vital Signs and Labs:
Lab Results
08/26/23 04:23
08/26/23 04:23
Temp Pulse Resp BP Pulse Ox
99 F 88 16 124/71 93
08/26/23 08:00 08/26/23 08:00 08/26/23 08:00 08/26/23 08:00 08/26/23 08:00
PT 14.2 Sec (11.4-14.6) 08/26/23 04:23
INR 1.10 08/26/23 04:23
Physical Exam
-
left knee: immobilizer in place. removed to reveal aquacel with minimal drainage. moderate swelling, no erythema or ecchymosis. Calf soft and non tender.
[2023-08-26 11:36] VITALS: BP 119/72; PULSE 100; O2SAT 94
[2023-08-26 12:00] VITALS: BP 107/69
[2023-08-26] MEDS: DUPHALAC/CHRONULAC 20 GRAMS PO (12:12)
[2023-08-26] MEDS: SENOKOT-S 2 TABLET PO (12:13)
[2023-08-26] MEDS: MIRALAX 17 GRAMS PO (12:15)
--- NOTE | 2023-08-26 12:20 | W.PN.HOSP.TC ---
Today's Communication/Plan
-
Discharge today
Assessment / Plan
Assessment / Plan
# Somnolence after elective left quadriceps tendon repair secondary to anesthesia
-since resolved
#Transaminitis
#Fatty liver
Trending down, abdominal ultrasound shows fatty liver
Seen by GI, recommend follow-up in the office
#Rupture of left quadriceps tendon status post repair today
-Patient received nerve block of left lower extremity
-PRN tylenol, oxycodone
-Keep left knee knee immobilizer
-Nonweightbearing left lower extremity due to nerve block
-Need to be discharged on aspirin 81 mg daily for DVT prevention until patient is mobile
-Follow-up with his orthopedic surgeon in the office, Dr. Paredes
DVT prophylaxis�SQ Lovenox
Full code
Physical Exam
General: Well Developed, Well Nourished and No Apparent Distress
HEENT: NormoCephalic, Moist mucous membranes and Atraumatic
Respiratory: Clear
Cardiac: S1/S2 and Regular Rhythm; No Murmur or Rub
GI: Soft, Non Tender, Non Distended and Normal Bowel Sounds; No Organomegaly
Musculoskeletal: No Clubbing, No Cyanosis and No Edema, Left lower ext immobilizer in placed
Skin: No Rash
Neuro: Nonfocal/grossly intact
Anticipated Discharge: Today
Subjective/Interval History
-
Date of Service: August 26, 2023
Patient reports feeling better. No chest pain, no shortness of breath. No vomiting, no fever. His left quadriceps pain is better.
Objective Data
-
Labs:
Laboratory Results
08/26/23
04:23
WBC 10.9 H
Hgb 11.4 L
Hct 34.0 L
Plt Count 269
PT 14.2
INR 1.10
Sodium 136
Potassium 3.9
Chloride 103
Carbon Dioxide 28
BUN 18
Creatinine 0.9
Glucose 105 H
Calcium 8.6
Total Bilirubin 1.0
AST 31
ALT 68 H
Alkaline Phosphatase 67
Vital Signs:
Vital Signs
Temp Pulse Resp BP Pulse Ox
99 F 88 16 124/71 93
08/26/23 08:00 08/26/23 08:00 08/26/23 08:00 08/26/23 08:00 08/26/23 08:00
I&O
08/25/23 08/26/23 08/27/23
06:59 06:59 06:59
Intake Total 450 / 450 1560 / 1560
Output Total 1400 / 1400 2130 / 2130
Balance -950 / -950 -570 / -570
--- NOTE | 2023-08-26 13:03 | W.DCSUMMARY ---
Discharge Summary
Discharge Data
Date of Admission: 08/24/23
Date of Discharge: 08/26/23
-
Pending Results: No
Hospital Course
Discharge diagnosis:
Somnolence after elective left quadriceps tendon repair secondary to anesthesia
Transaminitis
Fatty liver
Rupture of left quadriceps tendon status post repair
Consults: GI, orthopedic surgery
Abd US:
Status post cholecystectomy with no evidence for biliary ductal dilation.
Hepatomegaly with diffuse fatty infiltration of the liver.
The pancreas is not optimally visualized.
Hospital course:
68-year-old male who was admitted after his left quadriceps tendon repair for transaminitis, somnolence. Patient's somnolence was secondary to the anesthesia, and this resolved. Patient was seen in conjunction with GI for his transaminitis.
Abdominal ultrasound showed a fatty liver. Hepatitis panel is negative. Suspect that his transaminitis may be due to fatty liver disease. His LFTs trended down. GI recommends outpatient follow-up, and repeat LFTs in 1-2 weeks.
Patient was seen in conjunction with PT for his recent surgery. PT recommends outpatient PT. He is medically stable for discharge. He needs to follow-up with his primary care doctor in 1 week, and orthopedic surgery in 2 weeks. He needs to be on
aspirin 81 mg twice a day for DVT prophylaxis until he is more mobile.
Disposition: Home self-care
Discharge planning: Required 34 minutes
Discharge Plan
-
Patient Disposition: Home (Routine Discharge)
Discharge Diagnosis/Procedures: S/p left open quad tendon repair 08/24/23; elevated LFTs
Condition: Good
Diet: As tolerated
Activity: Other activity
Additional Activity: Weight bearing as tolerated with knee immobilizer in place
Driving Restrictions: Not until seen by your Dr
Bathing Restrictions: After seen by .
Blood Work: repeat Liver functions in 1-2 weeks
Wound Care: Keep knee immobilizer in place. May open this to apply ice, but avoid bending of the knee. Keep dressing dry
Referrals:
Santiago Paredes DO [Active] - in one week
Yazan Marte MD [Active] - (follow up with Dr. Marte or know GI at [place] for elevated liver function, fatty liver and eventual colonoscopy. Avoid toxic medication to liver and alcohol with fatty liver noted on imaging. )
Andrea Sumner MD [Family Provider] - in one week
Prescriptions:
New
aspirin [Children's Aspirin] 81 mg Tablet,Chewable
81 mg PO BID Qty: 60 0RF
oxycodone 5 mg Tablet
5 mg PO Q4HPRN PRN (Reason: moderate pain) Qty: 30 0RF
polyethylene glycol 3350 17 gram/dose powder
17 g PO DAILY Qty: 510 0RF
Discontinued
ibuprofen [Advil] 200 mg Tablet
400 mg PO Q6H PRN (Reason: pain)
Discharge Orders:
Discharge Patient (As Directed); Ordered 08/26/23
Ordered By: Allan Bar
Discharge Date and Time
Print Language: SWEDISH
[2023-08-26 16:00] VITALS: BP 120/78
[2023-08-26] MEDS: LOVENOX 40 MG SC (16:53)
== END 2023-08-26 17:25 | disposition home or self-care (01) ==
LOC: SDS 06:16
PROVIDERS: Hospitalist; Internal Medicine; Nurse Practitioner Adult Health; ATTENDING PHYSICIAN Orthopaedic Surgery; CONSULT PHYSICIAN Internal Medicine Gastroenterology; FAMILY PHYSICIAN Family Medicine
DX: S76.112A Strain of left quadriceps muscle, fascia and tendon, initial encounter (principal); X58.XXXA Exposure to other specified factors, initial encounter
CPT/HCPCS: 27385; 76700; 80048; 80053; 82248; 83735; 84100; 85025; 85027; 85610; 93005; 97116; 97162; 97530; C1713; G0378